=== PATIENT | male | born 1930 | race Caucasian/White ===

== ENCOUNTER 2017-12-04 12:09 | Observation (INO) | payer MEDICARE ==
[~2017-12-04] VITALS: Ht 177.8 cm; Wt 81.6 kg
[2017-12-04 13:42] LABS: BASOPHILS % 0.5 % (0.0-1.0); EOSINOPHILS # (AUTO) 0.1 (0.0-0.4); EOSINOPHILS % 1.1 % (0.0-6.0); HEMATOCRIT 35.1 % (38.2-49.6); HEMOGLOBIN 12.2 g/dL (14.0-18.0); LYMPHOCYTES # (AUTO) 1.3 (1.0-3.2); LYMPHOCYTES % 17.1 % (18.0-39.1); MEAN CORPUSCULAR HEMOGLOBIN 31.8 pg (28-32); MEAN CORPUSCULAR HGB CONC 34.8 g/dL (31-35); MEAN CORPUSCULAR VOLUME 91.4 fL (81-99); MONOCYTES # (AUTO) 0.5 (0.2-0.8); MONOCYTES % 6.3 % (4.4-11.3); NEUTROPHILS # (AUTO) 5.7 (2.1-6.9); NEUTROPHILS % 74.6 % (38.7-80.0); PLATELET COUNT 283 x10e3/uL (140-360); RED BLOOD COUNT 3.84 x10e6/uL (4.3-5.7); RED CELL DISTRIBUTION WIDTH 12.6 % (11.7-14.4)
[2017-12-04 13:58] LABS: ALANINE AMINOTRANSFERASE 15 IU/L (0-55); ALBUMIN 3.9 g/dL (3.5-5.0); ALBUMIN/GLOBULIN RATIO 1.4 (0.8-2.0); ALKALINE PHOSPHATASE 61 IU/L (40-150); ANION GAP 14.2 mmol/L (8-16); BLOOD UREA NITROGEN 15 mg/dL (7-26); BUN/CREATININE RATIO 19 (6-25); CALCIUM 9.2 mg/dL (8.4-10.2); CARBON DIOXIDE 24 mmol/L (22-29); CHLORIDE 98 mmol/L (98-107); CREATINE KINASE 204 IU/L (30-200); EST GLOMERULAR FILTRATION RATE > 60 ML/MIN (60-); GLUCOSE 104 mg/dL (74-118); POTASSIUM 4.2 mmol/L (3.5-5.1); SODIUM 132 mmol/L (136-145)
--- NOTE | 2017-12-04 14:08 | Diagnostic Imaging Report ---
PROCEDURE: A single AP view of the chest. COMPARISON: None. INDICATIONS: SHORTNESS OF BREATH FINDINGS: Lines/tubes: None. Lungs: There is no evidence of pneumonia or pulmonary edema. Right apical calcified granuloma. Pleura: There is no pleural effusion or pneumothorax. Heart and mediastinum: Normal heart size. Mildly tortuous, calcified thoracic aorta. Bones: No acute bony abnormality. Elevation of the right humeral head suggests chronic rotator cuff tear IMPRESSION: No evidence of infection or edema. Dictated by: Mayco Grajeda M.D. on 12/04/2017 at 14:13 Electronically approved by: Mayco Grajeda M.D. on 12/04/2017 at 14:13
[2017-12-04] MEDS ORDERED: ONDANSETRON HCL INJ 2 MG/ML VIAL IV PRN (14:30)
--- NOTE | 2017-12-04 15:34 | History and Physical ---
HISTORY OF PRESENT ILLNESS: This patient is being hospitalized through the emergency room. He reports that this morning he had been outside pulling weeds for approximately 90 minutes when he became lightheaded. He continues to experience significant lightheadedness and shortness of breath when standing. Denies chest pain. He has had occasional diaphoresis. Denies nausea. The patient has had anemia and was referred to a private sector executive 1 year ago, but declined that appointment. He has primary hypertension, hyperlipoproteinemia and poor hearing. He uses hearing aids. He has erectile dysfunction. MEDICATIONS: Coreg 6.25 twice daily. Lisinopril 10 mg twice daily. Lipitor 40 mg daily. Occasional sildenafil. EKG with chronic right bundle branch block. Hemoglobin 11.7 on August the with normal indices and normal white count, normal platelet count then. TSH 1.77 on March 24, 2017. Patient visits the [facility] intermittently. There he underwent on October 13, [address] because of hyponatremia according to the [place] record. Findings included atherosclerosis of the thoracic aorta and coronary arteries. Granuloma right lower lobe, calcified. DJD spine. A 4 mm cyst liver dome. Nonspecific calcification on pancreatic body. Granulomas of the spleen. Small right-sided inguinal hernia. Left hydrocele. No evidence of malignancy in the chest, abdomen and pelvis on that study. The LDL was 51 on September 24, 2016. PAST SURGICAL HISTORY: Surgeries have included appendectomy, bilateral cataract surgery. Bilateral knee replacements and right shoulder surgery. SOCIAL HISTORY: Alcohol. Denies tobacco. FAMILY HISTORY: Primary hypertension. The patient underwent colonoscopy November 20, 2016 revealing internal hemorrhoids and diverticulosis as well as polyps. ALLERGIES: NO KNOWN DRUG ALLERGIES. REVIEW OF SYSTEMS: GENERAL: As above. Primarily lightheaded and short of breath when arising. HEENT chronically poor hearing. CARDIORESPIRATORY: As above only. GI: Negative at this time. : Per the patient, negative at this time. NEUROMUSCULAR: Weak on standing. PHYSICAL EXAMINATION VITAL SIGNS: The blood pressure 152/72, sitting and 130/60 standing. O2 saturation 99%. Pulse is 62 and regular. Respiratory rate is 12 on sitting. The temperature is 98. HEENT: Pupils round and reactive. EOMs full. No icterus or pallor. Throat clear. NECK: Flexes. Carotids palpable. PULMONARY: Auscultation clear. CARDIAC: S1 and S2 within normal limits. ABDOMEN: Soft. Bowel sounds normal. Old scars. Prior history of adhesions. EXTREMITIES: Without edema, clubbing or cyanosis. Trace dampened pulses. Strength reduced when standing, otherwise nonfocal. DTRs 1+ and symmetrical. Babinski is negative. FINAL IMPRESSION: Acute onset today of weakness of lightheadedness and of dyspnea on standing. See also ER laboratory. To monitor here in this 87-year-old gentleman with history ASCVD, hypertension, hyperlipoproteinemia, poor hearing, and chronic anemia with essentially negative colonoscopy November 20, 2016. The patient previously denied appointment to private sector executive. See also initial and followup orders. Job#: [id number]
--- NOTE | 2017-12-04 16:23 | Diagnostic Imaging Report ---
History:Dizziness Comparison studies: None Technique: Axial images were obtained from the skull base to the vertex. Coronal and sagittal images reconstructed from the axial data. Intravenous contrast: None Findings: Scalp/skull: No abnormalities. Extra-axial spaces: No masses. No fluid collections. Brain sulci: Moderately prominent. Ventricles: Moderate compensatory dilatation. No hydrocephalus. Parenchyma: Ill defined hypodensities in the supratentorial white matter are small vessel ischemic changes. No masses, hemorrhage, acute or chronic cortical vascular insults. Sellar/suprasellar region: No abnormalities. Craniocervical junction: Patent foramen magnum. No Chiari one malformation. Incidental findings: Atherosclerotic calcifications in the carotid siphons and right intracranial vertebral artery. Impression: No acute abnormalities. Chronic findings: 1. Moderate generalized volume loss. 2. Moderate supratentorial white matter small vessel ischemic changes. Signed by: Dr. Stevo Ceron M.D. on 12/04/2017 4:19 PM
[2017-12-04 20:00] VITALS: BP 175/74
[2017-12-04 20:45] VITALS: BP 175/74
[2017-12-04 21:45] LABS: CREATINE KINASE MB 4.7 ng/mL (0-5.0)
[2017-12-05] VITALS: BP 151/72
[2017-12-05 04:00] VITALS: BP 158/74
[2017-12-05 06:03] LABS: CREATINE KINASE MB 3.5 ng/mL (0-5.0)
[2017-12-05 08:00] VITALS: BP 132/65
[2017-12-05 08:47] VITALS: BP 132/65
[2017-12-05] MEDS ORDERED: ASPIRIN 325 MG TAB EC PO SCH (09:00)
[2017-12-05] MEDS ORDERED: LISINOPRIL 10 MG TAB PO SCH (09:00)
[2017-12-05] MEDS ORDERED: CARVEDILOL 12.5 MG TAB PO SCH ×2 (09:00→17:00)
[2017-12-05 11:54] VITALS: BP 144/66
[2017-12-05] MEDS ORDERED: CARVEDILOL3.125 MG PO (12:52)
[2017-12-05] MEDS ORDERED: LISINOPRIL10 MG PO (12:53)
--- NOTE | 2017-12-05 17:20 | Consultation ---
DATE OF CONSULTATION: December 05, 2017 CARDIAC CONSULTATION REASON FOR CONSULTATION: Shortness of breath, chest tightness and dizziness. HISTORY: A very nice, 87-year-old gentleman who came to the emergency room. Apparently yesterday he was working in his yard, pulling weeds for approximately 90 minutes in the morning. He became lightheaded and he started having sweating and feeling lightheadedness and shortness of breath. When he stood, he felt his legs were very weak and they cannot support. him. He put some ice on him and he drank fluids and then he came to the emergency room. His blood pressure was reasonable. His heart rate in the 50s. His cardiac enzymes were normal. His CK total mildly elevated at 204, but troponin and MB were normal. Patient is very relatively active. He does have occasional shortness of breath and chest tightness, but yesterday the symptoms were different. He takes his medication as advised. REVIEW OF SYSTEMS: GENERAL: No fever. No chills. No night sweats. No weight gain. No weight loss. CARDIAC: As per above. Basically patient is relatively active with class II to early class III shortness of breath on exertion. Easy fatigability. Occasional chest tightness. No orthopnea. No paroxysmal nocturnal dyspnea. No prior syncope or presyncope. PULMONARY: No cough. No hemoptysis. HEENT: Decreased hearing. HEMATOLOGY: Easy bruising and bleeding. : Increased frequency of urination. No hematuria. No dysuria. MUSCULOSKELETAL: No aches. No pain. NEUROLOGIC: No seizure activity. No localized deficits. SOCIAL HISTORY: He is a social alcohol drinker. Is nonsmoker. He is retired from [employer]. PAST MEDICAL HISTORY: 1. Appendectomy. 2. Bilateral cataract surgery. 3. Bilateral knee replacements. 4. Right shoulder surgery. 5. Hypertension. 6. History of anemia in the past followed by Dr. Robles and he recommended hematological evaluation. 7. Hypercholesterolemia. FAMILY HISTORY: Hypertension. No family history of premature coronary artery disease. HOME MEDICATIONS: Include Lipitor 40 mg per day, lisinopril 10 mg twice a day. Coreg 6.25 mg twice a day. Aspirin 81 mg a day. ALLERGIES: MORPHINE AND CEPHALOSPORIN. PHYSICAL EXAMINATION VITALS: Height of 5 feet 10 inches, weight of 180 pounds. Blood pressure 140/60. Heart rate of 50. Respiratory rate of 18. Afebrile. HEENT: Decreased hearing is noted. NECK: No elevation of jugular venous pulsation. No bruit. CHEST: Kyphoscoliosis noted, otherwise clear to auscultation and percussion. HEART: PMI at 5th left intercostal space. Normal 1st and 2nd heart sounds. Soft ejection systolic murmur, left sternal border. ABDOMEN: Soft with good bowel sounds. No organomegaly. No bruit. EXTREMITIES: No cyanosis. No clubbing. No edema. Scar of previous surgery. No poor pulses. NEUROLOGIC: Awake, alert and oriented. Besides decreased hearing there are no localized deficits. LABORATORY DATA: Sodium 132, potassium 4.2. BUN 15, creatinine 0.8. Glucose of 104. White blood cell count of 7.6, hemoglobin 12.2. Hematocrit 35%, platelet count 283,000. CK total of 204, triglycerides of 29, cholesterol 115, HDL 57, LDL 51. IMAGING: CT head with chronic changes. No acute changes. Chest x-ray: No pulmonary edema. IMPRESSION AND PLAN: 1. Dizziness with near syncope. 2. Hypertension. 3. Hypercholesterolemia. 4. Relative bradycardia. 5. History of anemia. 6. Hypercholesterolemia. Patient admitted with near syncope and dizziness and chest pain. Differential diagnoses are hypertension secondary to blood pressure medications. Probably other contributing factor is relative bradycardia on small dose of beta daniela, will indicate conduction abnormality. Other probability is definitely coronary artery disease mainly with the presence of the chest pain. Cardiac-kendall recommendation I will review his echocardiogram. I will review his carotid Doppler. His cardiac enzymes are normal. Definitely patient will be benefiting by decreasing his beta daniela dose, decreasing his blood pressure medication. Cardiac stress test and Holter which can be done as an outpatient. Differential diagnoses are discussed and explained with the patient. Relatively lengthy visit with questioning and answering. Job#: [id number]
[2017-12-05] MEDS ORDERED: ATORVASTATIN 20 MG TAB PO SCH (21:00)
--- NOTE | 2017-12-06 21:52 | Discharge Summary ---
The patient presented with complaints that he had been outside picking and pulling weeds for approximately 90 minutes when he experienced multiple adverse symptoms including lightheadedness, weakness, and shortness of breath. These symptoms persisted. He was hospitalized through the emergency room for persistent symptoms, for assessment and further monitoring. This is an 87-year-old gentleman. Telemetry showed persistent sinus rhythm. White count 7.60, hemoglobin 12.2. Indices normal. No bleeding observed by the patient or clinically here. Sodium 132. CPK 204. Serial cardiac enzymes normal. CPK was 160 on December 05. The patient was hospitalized on . Natriuretic peptide was 49. LDL was 51. Chest x-ray, no evidence of infection or edema. The patient continued to experience lightheadedness after arrival. Head CT, moderate generalized volume loss. Moderate supratentorial white matter small-vessel ischemic changes. Carotid Doppler requested as was echocardiogram. Verbal report is that these were not pathological and final report pending per computer. History includes hypertension and hyperlipoproteinemia as well as poor hearing. The patient uses hearing aids. Mild chronic anemia with negative colonoscopy, November 20, 2016. No bleeding seen as mentioned. The patient declined hematology consultation previously. These are included in his discharge diagnoses. The patient was kindly assessed by excellence consultant, see notes. [employer] impression was near syncope and dizziness with chest pain. Consider bradycardia. Rule out coronary artery disease. The patient's beta blockers were reduced. Patient was stable for outpatient workup and was counseled to return to see his excellence consultant this week for reassessment possibly to conclude Holter and stress. FINAL IMPRESSION AND DIAGNOSES: As mentioned above. 1. Dizziness and near syncope. 2. Dyspnea. Resolved. 3. Hypertension. 4. Hyperlipoproteinemia. 5. Mild chronic anemia, the patient declined hematology consultation. 6. Atherosclerosis. See also discharge med reconciliation list. Patient to reduce his beta blockers by 50%. MARY WU MD Job#: [id number]
== END 2017-12-05 13:35 | disposition home or self-care (01) ==
LOC: ER 12:09 → ERHOLD 15:06 → IMCU 18:30
PROVIDERS: ADMIT Internal Medicine; ATTEND Internal Medicine
DX: R55 Syncope and collapse (principal); R06.00 Dyspnea, unspecified; I10 Essential (primary) hypertension; I25.10 Atherosclerotic heart disease of native coronary artery without angina pectoris; E78.5 Hyperlipidemia, unspecified; D64.9 Anemia, unspecified; R53.1 Weakness; R42 Dizziness and giddiness; E78.00 Pure hypercholesterolemia, unspecified; R00.1 Bradycardia, unspecified; R07.9 Chest pain, unspecified
CPT/HCPCS: 36415 ×2; 70450; 71045; 80053; 80061; 82550 ×2; 82553 ×2; 83880; 84484 ×2; 85025; 93005; 93306; 93880; 99284; G0378 ×2

== ENCOUNTER → 2020-01-26 | Outpatient (CLI) | payer MEDICARE ==
[~2020-01-26] MED LIST: CARVEDILOL3.125 MG PO; IOPAMIDOL 370 MG/ML 200 ML INFUS..BTL INJ ONE; LISINOPRIL10 MG PO; SODIUM CHLORIDE 0.9% 50ML 50 ML ONE
[2020-01-26 16:24] LABS: BLOOD UREA NITROGEN 24 mg/dL (7-26); BUN/CREATININE RATIO 22 (6-25); CREATININE, SERUM 1.08 mg/dL (0.72-1.25); EST GLOMERULAR FILTRATION RATE > 60 ML/MIN (60-)
--- NOTE | 2020-01-26 18:33 | Diagnostic Imaging Report ---
EXAMINATION: CT scan of the chest with contrast. TECHNIQUE: Spiral CT images of the chest were performed from the lung apices to the level of the adrenal glands after the intravenous administration of 100 cc of Isovue 370. Coronal and sagittal reformatted images were obtained. COMPARISON: None. Report of chest x-ray performed at outside institution was reviewed. CLINICAL HISTORY:Abnormal chest x-ray, pulmonary nodule DISCUSSION: LINES/TUBES: None. LUNGS AND AIRWAYS: 6 mm calcified granuloma in the right upper lobe (series 3, image 27). 6 mm benign perifissural nodule in the minor fissure (series 3, image 65 and sagittal image 53). No other pulmonary nodules. No masses or consolidation. Mild bilateral lower lobe dependent atelectatic changes. Mild subpleural reticulation in the posterior right lower lobe (series 3, image 78), consistent with mild fibrotic changes. The airways are clear, without endobronchial lesions. PLEURA: No pneumothorax or pleural effusions. HEART AND MEDIASTINUM: The thyroid gland is normal. Borderline cardiomegaly. Atherosclerotic calcification of the coronary arteries (particularly LAD), and thoracic aorta. Aorta is not aneurysmal. Main pulmonary artery is normal in caliber and measures 2.5 cm. LYMPH NODES: There is no mediastinal, hilar or axillary lymphadenopathy. ABDOMEN: Limited contrast-enhanced views of the upper abdomen show no abnormality within the visualized pancreas, adrenals or kidneys. Calcified splenic granulomata. 9 mm fluid density simple cyst in hepatic segment VIII/IV at the dome (series 2, image 84). BONES AND SOFT TISSUES: No aggressive lytic or suspicious focal sclerotic lesions. Generalized osteopenia. Soft tissues are grossly unremarkable. IMPRESSION: 1. 6 mm calcified granuloma in the right upper lobe. 2. Mild fibrotic changes in the posterior right lower lobe. Otherwise lungs are grossly clear. Signed by: Dr. Tico Fitzgerald M.D. on 01/26/2020 6:30 PM
== END ==
LOC: CT 15:44
PROVIDERS: ATTEND Internal Medicine
DX: R91.8 Other nonspecific abnormal finding of lung field (principal)
CPT/HCPCS: 36415; 71260; 82565; 84520; Q9967